=== PATIENT | male | born 1995 | race Caucasian/White ===

== ENCOUNTER 2023-05-31 06:49 | Emergency (ER) | payer BC ==
[2023-05-31] MEDS ORDERED: Boostrix 0.5 ML (Tdap) VIAL (>/=7 yrs of age) ONE (07:31)
[2023-05-31] MEDS ORDERED: Rabies Immune Globulin/PF 300 UNITS/ML VIAL IM SCH (07:45)
[2023-05-31] MEDS ORDERED: Rabies Vaccine Human 2.5 UNITS VIAL IM ONE (07:45)
== END 2023-05-31 09:18 | disposition home or self-care (01) ==
LOC: CSHERS 06:49
DX: S81.852A Open bite, left lower leg, initial encounter (principal); W54.0XXA Bitten by dog, initial encounter
CPT/HCPCS: 90375; 90471; 90675; 90715; 96372

== ENCOUNTER → 2023-06-04 | Emergency (ER) | payer BC ==
[~2023-06-04] MED LIST: Rabies Vaccine Human 2.5 UNITS VIAL IM ONE
== END ==
LOC: CSHERS 20:19
DX: Z29.14 Encounter for prophylactic rabies immune globulin (principal)
CPT/HCPCS: 90471; 90675

== ENCOUNTER → 2023-06-11 | Day surgery (SDC) | payer BC | LOC: CSHER/OP 16:12 | PROVIDERS: ATTEND Pathology Anatomic Pathology & Clinical Pathology | DX: Z23 Encounter for immunization (principal) | CPT/HCPCS: 90675 ==